=== PATIENT | male | born 1950 | race Caucasian/White ===

== ENCOUNTER 2024-07-09 12:26 | Emergency (ER) | payer MEDICARE, SELFPAY ==
[2024-07-09] VITALS (7 sets, daily range): BP systolic 113–177; BP diastolic 65–88; PULSE 54–79; RESP 14–18; TEMP 36.5; O2SAT 95–100
--- NOTE | ~2024-07-09 | CT_ITS ---
CT brain wo con Ordering provider: Cristiana Ochoa APRN History: 73 years Male with . weakness . Comparison: None. Technique: CT of the head without contrast. Radiation reduction technique utilized.The dose-length product was 681 mGy-cm. FINDINGS: BRAIN PARENCHYMA AND CSF SPACES: Mild leukoaraiosis and diffuse cortical atrophy. Mild atheromatous d isease. Old lacunar infarcts in the left basal ganglia and right caudate head. No midline shift, mass effect or hemorrhage. The brain parenchyma and CSF spaces are otherwise normal. VISUALIZED PARANASAL SINUSES: Bilateral maxillary and ethmoid sinus disease. Otherwise, Well aerated. MASTOIDS: Well aerated. BONES: The bones appear intact. SOFT TISSUES: Visualized nasopharynx is normal. Superficial soft tissues are normal. IMPRESSION: No acute intracranial findings. Reviewed, dictated and finalized at location A.
--- NOTE | ~2024-07-09 | CT_ITS ---
CTA brain carotid Ordering provider: Lexx Tong MD History: . left sided weakness, dysarthria . Comparison: July 09, 2024 Technique: CT angiogram head and neck was performed following timed intravenous injection of contrast . Thin slice axial images and reformatted coronal images were obtained. Three dimensional reformatted images of the brain were also obtained using a [employer] workstation. Radiation reduction technique ut ilized The dose-length product was 1111.68 mGy-cm. Hypodense ML Omnipaque 350 was given IV. FINDINGS: HEAD: --ANTERIOR AND MIDDLE CEREBRAL ARTERIES AND BRANCHES: Normal caliber and contour. --INTERNAL CAROTID ARTERIES: no significant stenosis. No occlusion. --BASILAR ARTERY AND BRANCHES: Normal caliber and contour. No atheromatous disease. --POSTERIOR CEREBRAL ARTERIES: Normal caliber and contour --POSTERIOR COMMUNICATING ARTERIES: The right is demonstrated and continues as posterior cerebral art quirino. The left is not visualized which is probably related to congenital absence or small size. --ANEURYSM: None visualized. --BRAIN: Enhancement seen in the brain cortex in the left frontal area which may indicate cerebritis. Herpes cerebritis Infection should be considered. Subacute infarct also can't be enhancing although no definite occlusion of vessels seen. --BONES AND SUPERFICIAL SOFT TISSUES: Please refer to report of CT head done the same day. --PARANASAL SINUSES AND MASTOIDS: Please refer to report of CT head done the same day. NECK: --RIGHT CERVICAL CAROTID SYSTEM: Mild atheromatous disease of the carotid bulb and proximal internal carotid artery without significant stenosis. Percent stenosis per NASCET criteria is No carotid diss ection. Otherwise, no significant atheromatous disease or stenosis of the cervical carotid system. --LEFT CERVICAL CAROTID SYSTEM: Mild atheromatous disease of the carotid bulb and proximal internal c arotid artery without significant stenosis. Percent stenosis per NASCET criteria is No carotid disse ction. Otherwise, no significant atheromatous disease or stenosis of the cervical carotid system. --VERTEBRAL ARTERIES: Normal caliber and contour. --VISUALIZED AORTIC ARCH AND BRANCHING VESSELS: Mild atherosclerotic changes. No significant stenosis . Ascending aorta measures 4 cm. --SOFT TISSUES: Diverticulum seen in the upper esophagus on the left side measuring 1.8 x 2.5 cm. Oth erwise, normal --CERVICAL SPINE: Age appropriate degenerative changes. IMPRESSION: 1. CTA neck. Percent stenosis per NASCET criteria is 0%. 2. No vascular occlusion or stenosis seen in the brain vessels. 3. Enhancement seen in the left frontal area suggestive of cerebritis. Subacute infarct is not exclu ded although no definite vascular occlusion seen in the area. Herpes cerebritis infection should be c onsidered. MRI may help to evaluate this area better. Dr. Tong was notified with the result of the patient at 6:27 PM on July 09, 2022. Reviewed, dictated and finalized at location A. IMPRESSION: 1. CTA neck. Percent stenosis per NASCET criteria is 0%. 2. No vascular occlusion or stenosis seen in the brain vessels. 3. Enhancement seen in the left frontal area suggestive of cerebritis. Subacut e infarct is not excluded although no definite vascular occlusion seen in the a [place]. Herpes cerebritis infection should be considered. MRI may help to evaluate this area better. Dr. Tong was notified with the result of the patient at 6:27 PM on July 09.
--- NOTE | ~2024-07-09 | XR_ITS ---
EXAMINATION: XR chest 2V DATE: 07/09/2024 14:44 INDICATION: Weakness TECHNIQUE: frontal and lateral views of the chest were obtained. COMPARISON: None FINDINGS: The lungs are clear with no focal airspace opacities, pulmonary edema, pleural effusion or pneumothor ax. The cardiomediastinal silhouette is normal. Visualized bones and soft tissues are unremarkable. IMPRESSION: 1. No acute cardiopulmonary disease. Reviewed, dictated and finalized at location A.
--- NOTE | 2024-07-09 14:08 | ED.GENADULT ---
HPI - General Adult General Chief complaint: Weakness <Cristiana Ochoa, DESTINATION SPECIALIST - Last Filed: 07/09/24 14:15> Stated complaint: Weakness/unable to walk <Cristiana Ochoa DESTINATION SPECIALIST - Last Filed: 07/09/24 14:15> Time Seen by Provider: 07/09/24 14:08 <Cristiana Huffman June, DESTINATION SPECIALIST - Last Filed: 07/09/24 14:15> Focused HPI: Aman Aparicio is a 73 y/o male with PMHx of Parkinson who typically is up at 6 in the AM and ambulatory without assistance, has been out doing yard work over the past week. Recently started on a new medication Mirtazapine for anxiety that states does make him sleepy, however this morning they went to get him up at 0815 and he was extremely more weak, unable to ambulate as normal/ states he has some baseline increased left sided weakness with his Parkinson but exacerbated today. Last known normal was 2199 05 states that speech has become more slurred over the past month and much worse today. GENERAL: well-nourished, and in no acute distress. HEAD: Normocephalic, atraumatic. CHEST: Clear to auscultation. No respiratory distress. HEART: Regular rate and rhythm. NEURO: Alert and oriented at baseline Patient screened in triage and initial orders placed. Additional care and disposition to be based upon diagnostic testing and treatment. <Cristiana Ochoa, DESTINATION SPECIALIST - Last Filed: 07/09/24 14:15> History of Present Illness HPI narrative: Agree with HPI. Patient reports he went to bed around midnight there he was trying to go to bed at 10:00 p.m.. Concern for CVA. <Lexx Tong MD - Last Filed: 07/10/24 13:23> Related Data Home medications: Home Medications Medication Instructions Recorded Confirmed Last Taken Type carbidopa 25 mg-levodopa 100 mg 2.5 tablet PO TID 07/09/24 07/09/24 07/09/24 History tablet carbidopa ER 50 mg-levodopa 200 mg 1 tablet PO DAILY@2200 07/09/24 07/09/24 07/09/24 History tablet,extended release entacapone 200 mg tablet 200 mg PO QID 07/09/24 07/09/24 07/09/24 History mirtazapine 15 mg tablet mg 07/09/24 07/08/24 History trazodone 50 mg tablet mg 07/09/24 07/08/24 History <Cristiana Ochoa, DESTINATION SPECIALIST - Last Filed: 07/09/24 14:15> Allergies/adverse reactions: Allergies Allergy/AdvReac Type Severity Reaction Status Date / Time Penicillins Allergy Severe Swelling Verified 07/09/24 12:28 of Lip/Tongue/Throat <Cristiana Ochoa, DESTINATION SPECIALIST - Last Filed: 07/09/24 14:15> Review of Systems Review of Systems: All systems reviewed & are unremarkable except as noted in HPI and below <Lexx Tong MD - Last Filed: 07/10/24 13:23> Constitutional: Constitutional: Reports no additional constitutional complaints <Lexx Tong MD - Last Filed: 07/10/24 13:23> ENT: Reports system reviewed and no additional complaints, except as documented <Lexx Tong MD - Last Filed: 07/10/24 13:23> Cardiovascular: Cardiovascular: Reports no additional cardiovascular complaints <Lexx Tong MD - Last Filed: 07/10/24 13:23> Respiratory: Respiratory: Reports no additional respiratory complaints <Lexx Tong MD - Last Filed: 07/10/24 13:23> Musculoskeletal: Musculoskeletal: Reports no additional musculoskeletal complaints <Lexx Tong MD - Last Filed: 07/10/24 13:23> Neurologic: Reports system reviewed and no additional complaints, except as documented <Lexx Tong MD - Last Filed: 07/10/24 13:23> PMFSH Past Medical History Medical History: Medical History (Updated 07/10/24 @ 00:00 by Background Dajulieta) Parkinsons disease <Cristiana Huffman June, DESTINATION SPECIALIST - Last Filed: 07/09/24 14:15> Exam Narrative: GENERAL: Ill-appearing, well-nourished, and in no acute distress. HEAD: Normocephalic, atraumatic. EYES: PERRL and EOMI. ENT: Mucous membranes moist. CHEST: Clear to auscultation. No respiratory distress. HEART: Regular rate and rhythm. Normal peripheral pulses. ABDOMEN: Soft, nontender, nondistended. EXTREMITIES: Normal range of motion. No edema. SKIN: Warm, dry, no rash. NEURO: Patient with left upper extremity drift and weakness, left lower extremity drift with some preserved strength. Difficulty with finger-nose testing left as well as [id number] testing. Slurred speech with occasional expressive aphasia. Mild left facial droop. NIH stroke scale of 9. Alert and oriented x3. <Lexx Tong MD - Last Filed: 07/10/24 13:23> Course Course Emergency Course: Awaiting call back from [facility]. Patient has had no headaches or neck stiffness. He denies fevers. He has no cold sore on his lip or in his mouth. [facility] was contacted and had been issue with patient the films over and Neurology really want to see the imaging prior to discussing the case. 2117: Spoke with neurology at [facility]. They have reviewed images. It is felt patient has symptoms more reflective of the stroke as opposed to a infectious component. They do not recommend LP or antiviral/antibiotic therapy at this time. Patient has been accepted to their facility under the care of Dr. Kana Morley. Patient and family educated. <Lexx Tong MD - Last Filed: 07/10/24 13:23> Vital Signs Vital signs: Vital Signs Temperature 97.7 F 07/09/24 12:33 Pulse Rate 74 07/09/24 12:33 Respiratory Rate 16 07/09/24 12:33 Blood Pressure 113/86 07/09/24 12:33 Pulse Oximetry 95 07/09/24 12:33 Oxygen Delivery Room Air 07/09/24 12:33 Temperature 97.7 F 07/09/24 12:33 Pulse Rate 79 07/09/24 23:13 Respiratory Rate 18 07/09/24 23:13 Blood Pressure 129/85 07/09/24 23:13 Pulse Oximetry 97 07/09/24 23:13 Oxygen Delivery Room Air 07/09/24 12:33 <Cristiana Ochoa APRN - Last Filed: 07/09/24 14:15> Vital Signs Temperature 97.7 F 07/09/24 12:33 Pulse Rate 74 07/09/24 12:33 Respiratory Rate 16 07/09/24 12:33 Blood Pressure 113/86 07/09/24 12:33 Pulse Oximetry 95 07/09/24 12:33 Oxygen Delivery Room Air 07/09/24 12:33 Temperature 97.7 F 07/09/24 12:33 Pulse Rate 79 07/09/24 23:13 Respiratory Rate 18 07/09/24 23:13 Blood Pressure 129/85 07/09/24 23:13 Pulse Oximetry 97 07/09/24 23:13 Oxygen Delivery Room Air 07/09/24 12:33 <Lexx Tong MD - Last Filed: 07/10/24 13:23> Medical Decision Making Vital Signs Vital Signs: Vital Signs Temperature 97.7 F 07/09/24 12:33 Pulse Rate 74 07/09/24 12:33 Respiratory Rate 16 07/09/24 12:33 Blood Pressure 113/86 07/09/24 12:33 Pulse Oximetry 95 07/09/24 12:33 Oxygen Delivery Room Air 07/09/24 12:33 Temperature 97.7 F 07/09/24 12:33 Pulse Rate 79 07/09/24 23:13 Respiratory Rate 18 07/09/24 23:13 Blood Pressure 129/85 07/09/24 23:13 Pulse Oximetry 97 07/09/24 23:13 Oxygen Delivery Room Air 07/09/24 12:33 <Cristiana Ochoa, DESTINATION SPECIALIST - Last Filed: 07/09/24 14:15> Vital Signs Temperature 97.7 F 07/09/24 12:33 Pulse Rate 74 07/09/24 12:33 Respiratory Rate 16 07/09/24 12:33 Blood Pressure 113/86 07/09/24 12:33 Pulse Oximetry 95 07/09/24 12:33 Oxygen Delivery Room Air 07/09/24 12:33 Temperature 97.7 F 07/09/24 12:33 Pulse Rate 79 07/09/24 23:13 Respiratory Rate 18 07/09/24 23:13 Blood Pressure 129/85 07/09/24 23:13 Pulse Oximetry 97 07/09/24 23:13 Oxygen Delivery Room Air 07/09/24 12:33 <Lexx Tong MD - Last Filed: 07/10/24 13:23> Lab Data Result diagrams: 07/09/24 15:34 07/09/24 15:34 <Cristiana Ochoa DESTINATION SPECIALIST - Last Filed: 07/09/24 14:15> Labs: Lab Results 07/09/24 07/09/24 07/09/24 Range/Units 15:34 16:24 18:46 WBC 6.6 (4.5-10.0) K/mm3 RBC 4.43 L (4.6-6.20) M/mm3 Hgb 12.0 L (14.0-18.0) g/dL Hct 38.2 L (42.0-52.0) % MCV 86.2 (80-100) fl MCH 27.1 (26-34) pg MCHC 31.4 L (32-36) g/dl RDW 14.8 H (11.5-14.5) % Plt Count 202 (150-375) k/mm3 MPV 9.3 (7.4-10.4) fl Immature Gran % (Auto) 0.5 (0-0.5) % Neut % (Auto) 77.5 H (45.5-73.1) % Lymph % (Auto) 11.2 L (18.3-44.2) % [place] % (Auto) 8.8 H (2.6-8.5) % Eos % (Auto) 1.5 (0-4.4) % Baso % (Auto) 0.5 (0.2-1.2) % Lymph # (Auto) 0.74 L (0.9-3.2) K/mm3 [place] # (Auto) 0.6 (0.1-0.6) K/mm3 Eos # (Auto) 0.1 (0-0.3) K/mm3 Baso # (Auto) 0.0 (0.0-0.1) K/mm3 Abs Immat Gran (auto) 0.03 (0.00-0.031) K/mm3 Absolute Neuts (auto) 5.1 (1.3-6.7) K/mm3 Absolute Nucleated RBC 0.000 (0.0-0.012) K/mm3 Nucleated RBC % 0.0 (0.0-0.2) % Sodium 137 (137-145) mmol/L Potassium 4.1 (3.4-5.0) mmol/L Chloride 107 (98-107) mmol/L Carbon Dioxide 21 L (22-30) mmol/L Anion Gap 9 (4-12) mmol/L BUN 21 H (9-20) mg/dL Creatinine 0.76 (0.7-1.3) mg/dL Estim Creat Clear Calc Not Reportable Estimated GFR > 60 (59 - ) Glucose 98 (65-110) mg/dL Calcium 9.2 (8.4-10.2) mg/dL Total Bilirubin 0.9 (0.2-1.3) mg/dL AST 21 (17-59) U/L ALT 8 (6-50) U/L Alkaline Phosphatase 57 (38-126) U/L Troponin I 0.021 0.019 (0.000-0.034) ng/mL Total Protein 7.0 (6.3-8.2) g/dL Albumin 4.0 (3.5-5.1) g/dL Urine Color Dark yellow (Yellow) Urine Appearance Clear (Clear) Urine pH 5.5 (5.0-9.0) Ur Specific [place] 1.026 (1.001-1.035) Urine Protein Negative (Negative) mg/dL Urine Glucose (UA) Negative (Negative) mg/dL Urine Ketones 1+ H (Negative) mg/dL Ur Blood (Man) Negative (Negative) Urine Nitrate Negative (Negative) Urine Bilirubin 1+ H (Negative) Urine Urobilinogen 1.0 (<2.0) mg/dL Leukocyte Esterase Rfl Negative (Negative) GEO/UL <Cristiana Ochoa, DESTINATION SPECIALIST - Last Filed: 07/09/24 14:15> Lab Results 07/09/24 07/09/24 07/09/24 Range/Units 15:34 16:24 18:46 WBC 6.6 (4.5-10.0) K/mm3 RBC 4.43 L (4.6-6.20) M/mm3 Hgb 12.0 L (14.0-18.0) g/dL Hct 38.2 L (42.0-52.0) % MCV 86.2 (80-100) fl MCH 27.1 (26-34) pg MCHC 31.4 L (32-36) g/dl RDW 14.8 H (11.5-14.5) % Plt Count 202 (150-375) k/mm3 MPV 9.3 (7.4-10.4) fl Immature Gran % (Auto) 0.5 (0-0.5) % Neut % (Auto) 77.5 H (45.5-73.1) % Lymph % (Auto) 11.2 L (18.3-44.2) % [place] % (Auto) 8.8 H (2.6-8.5) % Eos % (Auto) 1.5 (0-4.4) % Baso % (Auto) 0.5 (0.2-1.2) % Lymph # (Auto) 0.74 L (0.9-3.2) K/mm3 [place] # (Auto) 0.6 (0.1-0.6) K/mm3 Eos # (Auto) 0.1 (0-0.3) K/mm3 Baso # (Auto) 0.0 (0.0-0.1) K/mm3 Abs Immat Gran (auto) 0.03 (0.00-0.031) K/mm3 Absolute Neuts (auto) 5.1 (1.3-6.7) K/mm3 Absolute Nucleated RBC 0.000 (0.0-0.012) K/mm3 Nucleated RBC % 0.0 (0.0-0.2) % Sodium 137 (137-145) mmol/L Potassium 4.1 (3.4-5.0) mmol/L Chloride 107 (98-107) mmol/L Carbon Dioxide 21 L (22-30) mmol/L Anion Gap 9 (4-12) mmol/L BUN 21 H (9-20) mg/dL Creatinine 0.76 (0.7-1.3) mg/dL Estim Creat Clear Calc Not Reportable Estimated GFR > 60 (59 - ) Glucose 98 (65-110) mg/dL Calcium 9.2 (8.4-10.2) mg/dL Total Bilirubin 0.9 (0.2-1.3) mg/dL AST 21 (17-59) U/L ALT 8 (6-50) U/L Alkaline Phosphatase 57 (38-126) U/L Troponin I 0.021 0.019 (0.000-0.034) ng/mL Total Protein 7.0 (6.3-8.2) g/dL Albumin 4.0 (3.5-5.1) g/dL Urine Color Dark yellow (Yellow) Urine Appearance Clear (Clear) Urine pH 5.5 (5.0-9.0) Ur Specific [place] 1.026 (1.001-1.035) Urine Protein Negative (Negative) mg/dL Urine Glucose (UA) Negative (Negative) mg/dL Urine Ketones 1+ H (Negative) mg/dL Ur Blood (Man) Negative (Negative) Urine Nitrate Negative (Negative) Urine Bilirubin 1+ H (Negative) Urine Urobilinogen 1.0 (<2.0) mg/dL Leukocyte Esterase Rfl Negative (Negative) EGO/UL <Lexx Tong MD - Last Filed: 07/10/24 13:23> Discharge Plan Discharge Clinical Impression: Stroke <Cristiana Huffman June, DESTINATION SPECIALIST - Last Filed: 07/09/24 14:15> Patient Disposition: Acute Care Hospital <Cristiana Huffman June DESTINATION SPECIALIST - Last Filed: 07/09/24 14:15> Condition: Stable <Cristiana Huffman June, - Last Filed: 07/09/24 14:15> Patient Language: Togolese <Cristiana Huffman June,N - Last Filed: 07/09/24 14:15> Prescriptions: No Action carbidopa-levodopa 25-100 mg tablet 2.5 tablet PO TID Rx Instructions: 0600 1000 1800 *3 tabs @ 1400* carbidopa-levodopa 50-200 mg tablet extended release 1 tablet PO DAILY@2200 entacapone 200 mg tablet 200 mg PO QID mirtazapine 15 mg tablet trazodone 50 mg tablet <Cristiana CelyBernabe June, - Last Filed: 07/09/24 14:15> Follow-up/Referrals: Harms,Rocco Ying M.D. [Primary Care Provider] - <Cristiana Ochoa, DESTINATION SPECIALIST - Last Filed: 07/09/24 14:15> Quality Stroke Date of last known normal: 07/09/24 <Lexx Tong MD - Last Filed: 07/10/24 13:23> Time of last known normal: 00:00 <Lexx Tong MD - Last Filed: 07/10/24 13:23> Stroke Scale Stroke Scale 1: Stroke scale date:: 07/09/24 <Lexx Tong MD - Last Filed: 07/10/24 13:23> Stroke scale time:: 15:58 <Lexx Tong MD - Last Filed: 07/10/24 13:23> 1a Level of consciousness: alert-0 <Lexx Tong MD - Last Filed: 07/10/24 13:23> 1b Level of consciousness questions: answers both correctly-0 <Lexx Tong MD - Last Filed: 07/10/24 13:23> 1c Level of consciousness commands: obeys both correctly-0 <Lexx Tong MD - Last Filed: 07/10/24 13:23> 2 Best gaze: normal-0 <Lexx Tong MD - Last Filed: 07/10/24 13:23> 3 Visual: no visual loss-0 <Lexx Tong MD - Last Filed: 07/10/24 13:23> 4 Facial palsy: partial paralysis-2 <Lexx Tong MD - Last Filed: 07/10/24 13:23> 5a Motor: left arm: some effort/gravity-2 <Lexx Tong MD - Last Filed: 07/10/24 13:23> 5b Motor: right arm: no drift-0 <Lexx Tong MD - Last Filed: 07/10/24 13:23> 6a Motor: left leg: drift-1 <Lexx Tong MD - Last Filed: 07/10/24 13:23> 6b Motor: right leg: no drift-0 <Lexx Tong MD - Last Filed: 07/10/24 13:23> 7 Limb ataxia: present in two limbs-2 <Lexx Tong MD - Last Filed: 07/10/24 13:23> 8 Sensory: normal-0 <Lexx Tong MD - Last Filed: 07/10/24 13:23> 9 Best language: some loss of fluency-1 <Lexx Tong MD - Last Filed: 07/10/24 13:23> 10 Dysarthria: slurs some words-1 <Lexx Tong MD - Last Filed: 07/10/24 13:23> 11 Extinction and inattention: no abnormality-0 <Lexx Tong MD - Last Filed: 07/10/24 13:23> Level:: 9 <Lexx Tong MD - Last Filed: 07/10/24 13:23>
--- NOTE | 2024-07-09 14:15 | ECG_ITS ---
Test Date: 2024-07-09 15:33:02 Measurements Intervals [place] Rate: 59 P: 116 [place]: 178 QRS: 232 QRSD: 160 T: 176 QT: 452 QTc: 451 Interpretive Statements SINUS BRADYCARDIA WITH OCCASIONAL SUPRAVENTRICULAR PREMATURE COMPLEXES RIGHT AXIS DEVIATION [QRS AXIS > 100] RIGHT BUNDLE BRANCH BLOCK [120+ ms QRS DURATION, UPRIGHT V1, 40+ ms S IN I/aVL/V4/V5/V6] POSSIBLE SEPTAL MYOCARDIAL INFARCTION , OF INDETERMINATE AGE [30 ms Q WAVE IN V1/V2] MODERATE T-WAVE ABNORMALITY, CONSIDER INFERIOR ISCHEMIA [-0.1+ mV T-WAVE IN II/aVF] ABNORMAL ECG No previous ECG available for comparison Electronically Signed On 07-10-2024 08:01:28 CDT by Alfonso Figueredo M.D.
--- NOTE | 2024-07-09 15:39 | PC.NURSE ---
Pt provided with urinal to provide urine sample.
[2024-07-09 15:43] LABS: Basophils Percent Auto 0.5 % (0.2-1.2); Eosinophils Absolute Auto 0.1 K/mm3 (0-0.3); Eosinophils Percent Auto 1.5 % (0-4.4); Hematocrit 38.2 % (42.0-52.0); Immature Granulocyte Absolute 0.03 K/mm3 (0.00-0.031); Immature Granulocyte Percent A 0.5 % (0-0.5); Lymphocytes Absolute Auto 0.74 K/mm3 (0.9-3.2); Lymphocytes Percent Auto 11.2 % (18.3-44.2); Mean Corpuscular HGB Conc 31.4 g/dl (32-36); Mean Corpuscular Hemoglobin 27.1 pg (26-34); Mean Corpuscular Volume 86.2 fl (80-100); Mean Platelet Volume 9.3 fl (7.4-10.4); Monocytes Absolute Auto 0.6 K/mm3 (0.1-0.6); Monocytes Percent Auto 8.8 % (2.6-8.5); Neutrophils Absolute Auto 5.1 K/mm3 (1.3-6.7); Neutrophils Percent Auto 77.5 % (45.5-73.1); Platelet Count Result 202 k/mm3 (150-375); Red Blood Count 4.43 M/mm3 (4.6-6.20); Red Cell Distribution Width 14.8 % (11.5-14.5); White Blood Count 6.6 K/mm3 (4.5-10.0)
[2024-07-09 15:58] LABS: Alanine Aminotransferase 8 U/L (6-50); Alkaline Phosphatase 57 U/L (38-126); Anion Gap 9 mmol/L (4-12); Aspartate Amino Transferase 21 U/L (17-59); Bilirubin,Total 0.9 mg/dL (0.2-1.3); Blood Urea Nitrogen 21 mg/dL (9-20); Calcium 9.2 mg/dL (8.4-10.2); Carbon Dioxide 21 mmol/L (22-30); Chloride 107 mmol/L (98-107); Estimated Glomerular Filt Rate > 60; Glucose 98 mg/dL (65-110); Potassium 4.1 mmol/L (3.4-5.0); Sodium 137 mmol/L (137-145)
[2024-07-09 16:11] LABS: Troponin I 0.021 ng/mL (0.000-0.034)
[2024-07-09 16:31] LABS: Add Urine Microscopic? YES; Appearance Urine Clear (Clear); Bilirubin Urine 1+ (Negative); Blood Urine Negative (Negative); Color Urine Dark Yellow (Yellow); Glucose Urine UA Negative (Negative); Ketones Urine 1+ mg/dL (Negative); Leukocyte Esterase Ur Negative LEU/UL (Negative); Nitrate Urine Negative (Negative); Protein Urine Negative (Negative); Specific Grav Ur 1.026 (1.001-1.035); pH Urine 5.5 (5.0-9.0)
--- NOTE | 2024-07-09 17:04 | PC.NURSE ---
Pt attempting to give urine sample with urinal in bed with rails up and call light in reach. This RN was next door with another pt when pt was heard after a fall to the ground. Pt reports he was trying to stand to give urine sample, however did not call for help. Pt is &ox4. Pt hit knees on floor, denies hitting head. Pt assisted back to bed in NAD. Bed alarm applied and pt educated on fall precautions. information security systems instructor made aware.
--- NOTE | 2024-07-09 18:40 | ECG_ITS ---
Test Date: 2024-07-09 18:47:43 Measurements Intervals [place] Rate: 49 P: 64 MT: 205 QRS: -40 QRSD: 97 T: -13 QT: 475 QTc: 430 Interpretive Statements SINUS BRADYCARDIA LEFT AXIS DEVIATION [QRS AXIS < -30] POSSIBLE RIGHT VENTRICULAR CONDUCTION DELAY [RSR (QR) IN V1/V2] JUNCTIONAL ST DEPRESSION, CONSIDER NORMAL VARIANT [0.1+ mV JUNCTIONAL DEPRESSION] INFERIOR T-WAVE ABNORMALITY, CONSIDER ISCHEMIA ABNORMAL ECG Electronically Signed On 07-10-2024 08:04:14 CDT by Alfonso Figueredo M.D.
[2024-07-09 19:20] LABS: Troponin I 0.019 ng/mL (0.000-0.034)
== END 2024-07-09 23:47 | disposition short-term general hospital (02) ==
PROVIDERS: Nurse Practitioner Family; Emergency Provider Emergency Medicine; PCP Family Medicine
DX: I63.9 Cerebral infarction, unspecified (principal); G20.A1 Parkinson's disease without dyskinesia, without mention of fluctuations; Z79.899 Other long term (current) drug therapy
CPT/HCPCS: 36415; 70450; 70496; 70498; 71046; 80053; 81001; 84484; 85025; 93005; 99285; Q9967

== ENCOUNTER 2024-12-20 16:51 | Emergency (ER) | payer MEDICARE, SELFPAY ==
--- NOTE | ~2024-12-20 | XR_ITS ---
EXAMINATION: XR chest 1V portable DATE: 12/20/2024 18:08 INDICATION: Cough. Lethargy. TECHNIQUE: frontal view of the chest was obtained. COMPARISON: Chest radiograph dated 07/09/2024 FINDINGS: Moderate biapical pleural-parenchymal scarring. Increased interstitial pattern and bronchial wall thickening bilateral mid to lower lung zones which could be due to bronchitis/pneumonia or mild pulmonary edema. No pleural effusion or pneumothorax. The cardiomediastinal silhouette is normal. IMPRESSION: 1. Interstitial opacities and bronchial wall thickening in the bilateral mid and lower lung zones which could represent bronchitis/pneumonia or mild pulmonary edema. Reviewed, dictated and finalized at location A. IMPRESSION: 1. Interstitial opacities and bronchial wall thickening in the bilateral mid an d lower lung zones which could represent bronchitis/pneumonia or mild pulmonary edema.
[2024-12-20 16:51] VITALS: BP 121/76; PULSE 104; RESP 18; TEMP 37.9; O2SAT 96
--- NOTE | 2024-12-20 17:00 | ECG_ITS ---
Test Date: 2024-12-20 17:37:39 Measurements Intervals [place] Rate: 89 P: 41 LA: 185 QRS: -51 QRSD: 80 T: 0 QT: 180 QTc: 220 Interpretive Statements SINUS RHYTHM INCOMPLETE RIGHT BUNDLE BRANCH BLOCK LOW QRS VOLTAGE IN PRECORDIAL LEADS LEFT ANTERIOR FASCICULAR BLOCK NONSPECIFIC ST & T-WAVE ABNORMALITY- INFERIOR LEADS BASELINE ARTIFACT- I, III, AVR, AVL, AVF, V1-V2, V5-V6 ABNORMAL ECG Compared to ECG 07/09/2024 18:47:43 HEART RATE HAS INCREASED Electronically Signed On 12-20-2024 19:53:14 CDT by Markus Rodriguez D.O.
[2024-12-20 17:27] LABS: Hematocrit 32.7 % (42.0-52.0); Hemoglobin 11.0 g/dL (14.0-18.0); Mean Corpuscular HGB Conc 33.6 g/dl (32-36); Mean Corpuscular Hemoglobin 27.4 pg (26-34); Mean Corpuscular Volume 81.3 fl (80-100); Platelet Count Result 208 k/mm3 (150-375); Red Blood Count 4.02 M/mm3 (4.6-6.20); White Blood Count 14.7 K/mm3 (4.5-10.0)
[2024-12-20 17:38] LABS: INR 1.2; Prothrombin Time 14.6 Seconds (11.1-14.7)
[2024-12-20 17:38] LABS: Add Urine Microscopic? YES; Appearance Urine Clear (Clear); Glucose Urine UA Negative (Negative); Leukocyte Esterase Ur Negative LEU/UL (Negative); Nitrate Urine Negative (Negative); Specific Grav Ur 1.018 (1.001-1.035)
[2024-12-20 17:39] LABS: Alanine Aminotransferase 7 U/L (6-50); Albumin Level 3.9 g/dL (3.5-5.1); Alkaline Phosphatase 62 U/L (38-126); Anion Gap 7 mmol/L (4-12); Aspartate Amino Transferase 32 U/L (17-59); Bilirubin,Total 0.5 mg/dL (0.2-1.3); Blood Urea Nitrogen 31 mg/dL (9-20); Calcium 9.2 mg/dL (8.4-10.2); Carbon Dioxide 21 mmol/L (22-30); Chloride 106 mmol/L (98-107); Estimated CRCL calculation 81 ml/min; Estimated Glomerular Filt Rate > 60; Glucose 93 mg/dL (65-110); Partial Thromboplastin Time 34.8 Seconds (22.3-36.8); Potassium 4.3 mmol/L (3.4-5.0); Sodium 134 mmol/L (137-145); Total Protein 6.5 g/dL (6.3-8.2)
--- OUTSIDE RECORDS SUMMARY | 2024-12-20 17:46 | XMS_ITS | Clinical Summary ---
Author Organization [facility] Address [address] [place] [address] Care Team Providers Care Attending Anesthesiologist Name Role Phone Rocco Sierra MD Primary Care Provider [phone] Social History Tobacco Use Types Packs/Day Years Used Date Smoking Tobacco: Never Assessed Sex and Gender Information Value Date Recorded Sex Assigned at Not on file Legal Sex Male 2:21 PM CDT Gender Identity Not on file Sexual Orientation Not on file Plan of Treatment Health Maintenance Due Date Last Done Comments Colorectal Cancer Screening Colonoscopy (10 Years) 1950 Hepatitis C 11/16/1967 DTaP, Tdap and Td Vaccines ( 1 - Tdap) 1968 Pneumococcal Vaccine: 50+ Ye ars (1 of 1 - PCV) 11/16/1999 Zoster Vaccines (1 of 2) 11/16/1999 Annual Medicare Wellness Visit 2014 COVID-19 Vaccine ( - 2024-2 6 season) 2024 RSV Immunization or 60+ Years (1 - 1-dose 75+ series) 2024 Influenza Adult (#1) 2024 Hepatitis A Vaccines Aged Out No long er eligible based on patient's age to complete this topic Meningococcal B Vaccine Aged Out No l onger eligible based on patient's age to complete this topic Meningococcal Vaccine Aged Out No juan enrike eligible based on patient's age to complete this topic RSV Immunizations Under 20 Months Aged Out No longer eligible based on patient's age to complete this topic Insurance MED REPLACE [facility] MEDICARE Care Teams Attending Anesthesiologist Relationship Specialty Start Date End [place] [address] PCP - General INTERNAL MEDICINE 07/22/24
--- OUTSIDE RECORDS SUMMARY | 2024-12-20 17:46 | XMS_ITS | Encounter Summary ---
Author Organization [facility] Address [address] [place] [address] Phone Care Team Providers Care Last Pattern Grader Name Role Phone Chente Weller MD Primary Care Provider [phone] Reason for Visit * Reason Onset Date Comments Advice Only 10/26/2024 Diarrhea 10/26/2024 Encounter Details Date Type Department Care Team (Late st Contact Info) Description 10/26/2024 Nurse Triage [facility] Call Center [address] [place] [address] Chente Weller MD [address] [place] [address] Advice Only; Diarrhea Social History Tobacco Use Types Packs/Day Years Used Date Smoking Tobacco: Never Smokeless Tobacco: Never Alcohol Use Standard Drinks/Week Comments Not Currently 0 (1 standard drink = 0.6 oz pur e alcohol) PHQ-2 Answer Date Recorded Total Score - Questions 1-9 0 10/2024 Social Connection and Isolation Panel Answer Date Recorded In a typical week, how many times do you talk on the phone with family, friends, or neighbors? More than three times a week 09/01/2024 How often do you get togethe r with friends or relatives? Patient declined 09/01/2024 How often do you attend chur ch or restoration services? Patient declined 09/01/2024 Do you belong to any clubs o r organizations such as scientology groups, unions, fraternal or athletic groups, or school groups? No 09/01/2024 How often do you attend meet ings of the clubs or organizations you belong to? Never 09/01/2024 Are you , , di vorced, , never , or living with a partner? 09/01/2024 AUDIT-C Answer Date Recorded Q1: How often do you have a drink containing alc ohol? Monthly or less 09/01/2024 Q2: How many drinks containi ng alcohol do you have on a typical day when you are drinking? 1 or 2 09/01/2024 Q3: How often do you have si x or more drinks on one occasion? Never 09/01/2024 Overall Financial Resource Strain (CARDIA) Answe r Date Recorded How hard is it for you to pa y for the very basics like food, housing, medical care, and heating? Not hard at all 09/01/2024 [facility] Reading of Occupat ional Health - Occupational Stress Questionnaire Answer Date Recorded Do you feel stress - tense, restless, nervous, or anxious, or unable to sleep at night because your mind is troubled all the time - these days? Only a little 09/01/2024 Exercise Vital Sign Answer Date Recorde d On average, how many days pe r week do you engage in moderate to strenuous exercise (like a brisk walk)? 7 days 09/01/2024 On average, how many minutes do you engage in exercise at this level? 10 min 09/01/2024 Hunger Vital Sign Answer Date Recorded Within the past 12 months, y ou worried that your food would run out before you got the money to buy more. Never true 09/02/19 25 Within the past 12 months, t he food you bought just didn't last and you didn't have money to get more. Never true 09/01/2024 PRAPARE - Transportation Answer Date Re corded In the past 12 months, has l ack of transportation kept you from medical appointments or from getting medications? No 10/2024 In the past 12 months, has l ack of transportation kept you from meetings, work, or from getting things needed for daily living? No 09/01/2024 Housing Stability Vital Sign Answer Jeff e Recorded In the last 12 months, was t here a time when you were not able to pay the mortgage or rent on time? No 09/01/2024 In the past 12 months, how m any times have you moved where you were living? 0 09/01/2024 At any time in the past 12 m [facility], were you homeless or living in a fci (including now)? No 09/01/2024 [facility] Utilities Answer Date Recorded In the past 12 months has e electric, gas, oil, or water company threatened to shut off services in your home? No 09/01/2024 Sexually Active Control Partners Comments Not Currently Sex and Gender Information Value Date Recorded Sex Assigned at Not on file Legal Sex Male 8:09 PM CDT Gender Identity Not on file Sexual Orientation Not on file documented as of this encounter Miscellaneous Notes * Telephone Encounter - Yasmin Tay RN - 10/26/2024 11:01 AM CDT SITUATION: 73 y.o. with diarrhea BACKGROUND: Morena Romero, contacting PCP office. Person contacting is listed on current personal safety representative designee form on file. stated that patient has Parkinson's. reported patient had constipation last week, and wasgiven Miralax. reported patient has been having diarrhea since 10/22/24 Per chart review, patient was last seen in office on 09/01/24 ASSESSMENT: Symptom Description / Location: reported patient is having increased bowel incontinence Watery stool 4-5 stools in past 24 hours Normal stool color Reported normally does not drink much liquids Reported started Doxycycline on 10/20/24 Has taken previous with no problems Denies chest pain -shortness of breath/difficulty breathing -abdominal pain -blood/mucous in stool -dehydration, vomiting Treatment / Response: Imodium twice, Pepto-bismol with no relief. Caller denies pain. Denies fever. RECOMMENDATION: See in Office Today. Caller understands recommendation, but refuses disposition of See in Office or Video Visit Today, See More Appropriate Guideline and is requesting provider recommendations regarding a medication thatcan stop diarrhea. is wanting provider's recommendations regarding medications that can stop diarrhea? Please advise with provider's recommendations, would like a phone call back with provider's recommendations. Verified medication, pharmacy, and allergies Encounter routed to provider high priority to notify. Discussed utilizing [employer] to: discuss if they would prefer a [employer] message or phone call response. Response is preferred via Phone Call. - Reason for Disposition: Diarrhea begins while taking an antibiotic by mouth (oral antibiotic) MODERATE diarrhea (e.g., 4-6 times / day more than normal) . Protocols Used: Diarrhea on Fcllxyxchoo-A-DK Mcnhmvnq-D-UX See care advice and disposition for Guideline. First positive answer recorded, all responses to prior questions were negative. If symptoms increase, change or if new symptoms develop, call your health care provider or call back. Recommendations were based on caller information and is not a diagnosis. Verified and reviewed all triage information with caller. * Telephone Encounter - Claire Guidry - 10/26/2024 10:46 AM CDT Symptom: Diarrhea Outcome: Schedule an appointment at earliest convenience. Reason: Caller denied all higher acuity questions The caller accepted this outcome. Caller Denied: * Blood in the diarrhea * Vomiting * No urine (pee) in past 8 hours documented in this encounter Plan of Treatment Upcoming Encounters Date Type Department Care Team (Late st Contact Info) Description 05/26/2025 11:00 AM CDT Office Visit [facility] - [facility] - [facility] [address] [place] [phone] Chente Weller MD [address] [place], [place] [id number] documented as of this encounter Visit Diagnoses Not on filedocumented in this encounter Additional Health Concerns Assessment Noted Time PHQ-9 Depression Total Score: 0 09/02/19 25 8:26 AM CDT documented as of this encounter Care Teams Last Pattern Grader Relationship Specialty Start Date End Date Chente Weller MD PCP - General Internal Medicine 09/01/24 documented as of this encounter
--- OUTSIDE RECORDS SUMMARY | 2024-12-20 17:46 | XMS_ITS | Clinical Summary ---
Author Organization [facility] Address [address] [facility], [address] [address] Phone Care Team Providers Care Fan Runner Name Role Phone Chente Weller MD Primary Care Provider [phone] Allergies Active Allergy Reactions Criticality Noted Date Comments Atorvastatin Other (see Comments) 10/01/2024 Bitter taste Penicillins Hives 09/01/2024 Medications carbidopa-levodopa CR (SINEMET CR) 50-200 MG Tablet Controlled Release Take 1 Tablet by mouth nightly. 5 06/03/19 26 Active carbidopa-levodopa (SINEMET) 25-100 MG Tablet Take 1 Tablet by mouth 3 times daily. 5 Active entacapone (COMTAN) 200 MG Tablet Take 200 mg by mouth 4 times daily. 5 Active mirtazapine (REMERON) 15 MG Tablet Take 15 mg by mouth nightly. 5 04/20/19 26 Active senna (SENOKOT) 8.6 MG Tablet Take 1 Tablet by mouth daily. Active traZODone (DESYREL) 50 MG Tablet Take 50 mg by mouth nightly. 5 Active aspirin EC (ECOTRIN) 325 MG Tablet Delayed Response Take 325 mg by mouth daily. Active ezetimibe (ZETIA) 10 MG Tablet Take 1 Tablet by mouth daily. 90 Tablet 1 5 Active carbidopa (LODOSYN) 25 MG Tablet Take 25 mg by mouth 3 times daily. Active rosuvastatin (CRESTOR) 5 MG TabletIndications: Other hyperlipidemia Take 1 Tablet by mouth nightly. 90 Tablet 1 5 Active ezetimibe (ZETIA) 10 MG Tablet Take 1 Tablet by mouth daily. 30 Tablet 3 5 11/26/19 25 Discontinu ed(Reorder ) carbidopa (LODOSYN) 25 MG Tablet Take 25 mg by mouth 3 times daily. 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 09/01/2024 Other hyperlipidemia 09/01/2024 Hemiparesis affecting left s valeriano as late effect of cerebrovascular accident (CVA) 09/01/2024 Other insomnia 09/01/2024 Encounters Date Type Department Care Team Description 12/15/2024 Telephone [facility] [address] [place] [address] Chente Weller MD 11/25/2024 8:40 AM CDT Office Visit [facility] [place] [facility] [address] [place] [address] Chente Weller MD Hemiparesis affecting left side as late effect of cerebrovascular accident (CVA) (Primary Dx); Encounter for immunization; Other hyperlipidemia; Parkinson's disease with dyskinesia without fluctuating manifestations Discharge Disposition: Discharged to home or Selfcare 11/25/2024 Travel 10/26/2024 Nurse Triage [facility] [address] [phone] Chente Weller MD Advice Only; Diarrhea 10/01/2024 Refill [facility] [address] [place] [address] Chente Weller MD 09/24/2024 Nurse Triage [facility] Call Center [address] [place] [phone] Chente Weller MD Taste Concerns; Follow-up 09/24/2024 Telephone [facility] Call Center [address] [place] [phone] Chente Weller MD Erroneous Encounter - Disregard from Last 3 Months Immunizations Immunization Administration Dates Next Due Influenza, Trivalent, Adjuvanted, PF 11/25/2024 Family History Medical History Relation Name Comments No Known Problems Brother No Known Problems Sister Relation Name Status Comments Brother Alive Father Mother Sister Alive Social History Tobacco Use Types Packs/Day Years Used Date Smoking Tobacco: Never Passive Smoke Exposure: Never Smokeless Tobacco: Never Tobacco Cessation:Counseling Given: No Alcohol Use Standard Drinks/Week Comments Not Currently 0 (1 standard drink = 0.6 oz pur e alcohol) PHQ-2 Answer Date Recorded Total Score - Questions 1-9 0 03/2024 Social Connection and Isolation Panel Answer Date Recorded In a typical week, how many times do you talk on the phone with family, friends, or neighbors? More than three times a week 09/01/2024 How often do you get togethe r with friends or relatives? Patient declined 09/01/2024 How often do you attend [facility] or mormon services? Patient declined 09/01/2024 Do you belong to any clubs o r organizations such as gnosticism groups, unions, fraternal or athletic groups, or [...] and heating? Not hard at all 09/01/2024 [facility] [place] of Occupat ional Health - Occupational Stress [...] any time in the past 12 m [facility], were you homeless or living in a snf (including now)? No 09/01/2024 [facility] Utilities Answer Date Recorded In the past 12 months has th e electric, gas, oil, or water company threatened to shut off services in your home? No 09/01/2024 Sexually Active Control Partners Comments Not Currently Sex and Gender Information Value Date Recorded Sex Assigned at Not on file Legal Sex Male 8:09 PM CDT Gender Identity Not on file Sexual Orientation Not on file Last Filed Vital Signs Vital Sign Reading Time Taken Comments Blood Pressure 100/64 11/25/2024 8:37 AM CDT Pulse 64 11/25/2024 8:37 AM CDT Temperature 36.7 C (98.1 F) 11/25/2024 8:37 AM CDT Respiratory Rate - - Oxygen Saturation 100% 11/25/2024 8:37 AM CDT Inhaled Oxygen Concentration - - Weight 72.6 kg (160 lb) 11/25/2024 8:37 AM CDT Height 190.5 cm (6' 3) 11/25/2024 8:37 AM CDT Body Mass Index 20 11/25/2024 8:37 AM CDT Plan of Treatment Upcoming Encounters Date Type Department Care Team (Late st Contact Info) Description 05/26/2025 11:00 AM CDT Office Visit [facility] - Primary Care - [facility] [address] [place] [place] [phone] Chente Weller MD [address] [place] [address] Health Maintenance Due Date Last Done Comments Hepatitis C Virus (HCV) Screening 1950 TdaP Immunization 1950 Cologuard 1994 Colonoscopy 1994 Colorectal Cancer Screening 1994 Immunochemical Fecal Occult Blood 1994 Welcome to Medicare (IPPE) [id number] 02/25/2024 SARS-COV-2 Immunization ( season) 2024 02/04/2024, 06/28/2022, 11/05/2021, Additional history exists Pneumococcal Immunization (50+ years) Completed 04/01/2024, 01/30/2021 Respiratory Syncytial Virus (RSV) Immunization (Adult) Completed 04/01/2024 Zoster Immunization Completed 04/01/2024, Influenza Immunization Completed , 02/04/2024, 11/05/2021, Additional history exists Hepatitis B Immunization Aged Out No longer eligible based on patient's age to complete this topic Human Papillomavirus (HPV) Immunization Aged Out No longer eligible based on patient's age to complete this topic Meningococcal Immunization (ACWY) Aged Out No longer eligible based on patient's age to complete this topic Rotavirus Immunization Aged Out No lo nger eligible based on patient's age to complete this topic Procedures Procedure Name Priority Date/Time Associated Diagnosis Comments LIPID PANEL Routine 12/01/2024 12:00 AM CDT Other hyperlipidemia CMP (COMPREHENSIVE METABOLIC PANEL) Routine 12/01/2024 12:00 AM CDT Other hyperlipidemia from Last 3 Months Results * LIPID PANEL (12/01/2024 12:00 AM CDT) CHOLESTEROL 149 SCAN HDL CHOLESTEROL 40 SCAN LDL 91 SCAN Blood Chente Weller MD CHEMISTRY ORDERABLES Final Result SCAN * CMP (COMPREHENSIVE METABOLIC PANEL) (12/01/2024 12:00 AM CDT) Blood us Chente Weller MD CHEMISTRY ORDERABLES Final Result SCAN from Last 3 Months Insurance MEDICARE C [facility] Care Teams Fan Runner Relationship Specialty Start Date End Date Chente Weller MD PCP - General Internal Medicine 09/01/24
[2024-12-20 17:51] LABS: Anisocytosis 2+; Band Neutrophils Percent 8 % (0-6); Basophils Absolute Manual 0.14 K/mm3 (0.0-0.1); Basophils Percent Manual 1 % (0-1); Lymphocytes Absolute Manual 1.61 K/mm3 (1.1-4.5); Lymphocytes Percent Manual 11.0 % (18-44); Monocytes Absolute Manual 0.44 K/mm3 (0.1-0.90); Monocytes Percent Manual 3 % (3-9); Neutrophils Absolute Manual 12.49 K/mm3 (1.3-6.7); Neutrophils Percent Manual 77 % (46-73); Schistocytes None Seen; Total Cells Counted 100
--- NOTE | 2024-12-20 18:01 | ED.WEAKNESS ---
HPI - Weakness General Chief complaint: Altered Mental Status Stated complaint: increased confusion/restlessness Time Seen by Provider: 12/20/24 17:33 History of Present Illness HPI Narrative: Patient is a 74-year-old male who presents to the ER with complaints of increased shaking, restlessness, chills, and confusion. His reports his symptoms started this morning when he woke up. Patient sources a history of Parkinson's since 2002, and a stroke in 2024. He denies any chest pain, shortness of breath, lower extremity swelling, or abdominal pain. Patient's reports he has been urinating more frequently and has had a cough due to seasonal allergies. Related Data Home Medications ?Medication ?Instructions ?Recorded ?Confirmed ?Last Taken ?Type carbidopa ER 50 mg-levodopa 200 mg 1 tablet PO DAILY@2200 07/09/24 07/13/24 07/09/24 History tablet,extended release entacapone 200 mg tablet 200 mg PO QID 07/09/24 07/13/24 07/13/24 13:20 History Allergies Allergy/AdvReac Type Severity Reaction Status Date / Time Penicillins Allergy Severe Swelling Verified 07/13/24 16:21 of Lip/Tongue/Throat Review of Systems Review of Systems: All systems reviewed & are unremarkable except as noted in HPI and below PMFSH Past Medical History Medical History Parkinsons disease Family History Family History Father Lung cancer Social History Social History Smoking status: Never smoker Alcohol intake: never Substance use: never Substance use type: does not use Do You Feel Safe in your Home?: Yes Lack of Transportation: No Lack of Food: Never True Current Housing: I Have Housing Concerned About Future Housing: No Difficulty Paying Gas/Electric Bills: No Difficulty Paying for Meds: No Currently Unemployed: No Education: Bachelor's Degree Difficulty w/ Childcare or Family Care: No Gender identity (if verbalized by the patient): Male Sexual Orientation (if Verbalized by the Patient): Straight or Heterosexual Spiritual care concerns: No Agree to blood products: Yes Exam Narrative: GENERAL: Well appearing, well-nourished, non-toxic, in no acute distress. HEAD: Normocephalic, atraumatic. NECK: Supple. No adenopathy, no masses. RESPIRATORY: Clear lungs, regular rate, no wheezing, no rhonchi CARDIOVASCULAR: Regular rate and rhythm without murmurs, rubs, or gallops. Peripheral pulses 2+ and equal bilaterally. ABDOMINAL: Soft, nontender, nondistended, no hepatosplenomegaly. Normoactive BS. MUSCULOSKELETAL: Moves all extremities. Strength/ROM intact without gross deformities. SKIN: Warm, dry, normal color. No rashes. NEURO: A&O X3. Speech clear. Cranial nerves II-XII intact. Tremors at baseline PSYCHIATRIC: Appropriate mood and affect. Normal interaction. Course Vital Signs Vital signs: Vital Signs Temperature 37.9 C H 12/20/24 16:51 Pulse Rate 104 H 12/20/24 16:51 Respiratory Rate 18 12/20/24 16:51 Blood Pressure 121/76 12/20/24 16:51 Pulse Oximetry 96 12/20/24 16:51 Oxygen Delivery Room Air 12/20/24 16:51 Temperature 37.9 C H 12/20/24 16:51 Pulse Rate 79 12/20/24 19:30 Respiratory Rate 17 12/20/24 19:30 Blood Pressure 107/67 12/20/24 19:30 Pulse Oximetry 98 12/20/24 19:30 Oxygen Delivery Room Air 12/20/24 17:31 MDM - Weakness MDM Narrative Medical decision making narrative: Patient is a 74-year-old male who presents to the ER with complaints of increased shaking, restlessness, chills, and confusion. His reports his symptoms started this morning when he woke up. Patient sources a history of Parkinson's since 2002, and a stroke in 2024. He denies any chest pain, shortness of breath, lower extremity swelling, or abdominal pain. Patient's reports he has been urinating more frequently and has had a cough due to seasonal allergies. Labs Ordered: CBC, CMP, lactic acid, CRP, PTT, INR, UA, blood cultures Imaging Ordered: Chest x-ray Medications Ordered: 2 L normal saline IV bolus, Levaquin IV Results: Pt's chest x-ray indicates Moderate biapical pleural-parenchymal scarring. Increased interstitial pattern and bronchial wall thickening bilateral mid to lower lung zones which could be due to bronchitis/pneumonia or mild pulmonary edema. No pleural effusion or pneumothorax. The cardiomediastinal silhouette is normal. Diagnosis: Pneumonia Risks: CURB-65 score: moderate risk CURB-65 Score for Pneumonia Severity from [email or web address] on 12/20/2024 All calculations should be rechecked by clinician prior to use RESULT SUMMARY: 2 points Moderate risk group: 6.8% 30-day mortality. Consider inpatient treatment or outpatient with close followup. INPUTS: Confusion ?> 0 = No BUN >19 mg/dL (>7 mmol/L urea) ?> 1 = Yes Respiratory Rate >=0 ?> 0 = No Systolic BP <90 mmHg or Diastolic BP <=0 mmHg ?> 0 = No Age >=5 ?> 1 = Yes Patient Education/Shared MDM: Results of lab work and imaging shared with patient. He endorses improvement of symptoms following medication administration. Extensive discussion between patient, patient's family and NURSING UNIT COORDINATOR regarding plan. Pt reports he would like to be discharged home and attempt outpatient treatment with oral antibiotics. Patient strongly advised to maintain hydration status upon discharge and follow-up with his PCP as soon as possible. He will be discharged home with a prescription for Levofloxacin (he has allergies to Penicillin), an inhaler, and cough medicine. Strict return precautions provided. Patient verbalized understanding and is in agreement with plan. Vital signs stable at time of discharge. All questions answered. CRITICAL CARE ADDENDUM: Indication: R/O sepsis Time type: intermittent I provided a total of 55 minutes of critical care excluding separately billable procedures. This includes time w/ EMS, initial bedside evaluation, reviewing old records, review of testing done while under my care, discussion w/ the family, nurses, data migration consultant and guiding the patient?s care while in the emergency department. Approximate time distribution: 15 minutes ? Initial evaluation, d/w involved parties, attempting to gather old records. 10 minutes ? Documenting medical record 10 minutes ? Review of results (EKGs, labs, imaging) 10 minutes ? Serial repeat bedside evaluation 10 minutes ? Discussing case with multiple providers Please see main chart for details. Excludes separately billable procedures. Differential Diagnosis Differential diagnosis: Likely acute myocardial infarction, rhabdomyolysis, sepsis, dehydration and other (Pneumonia) Lab Data Attestation: I reviewed the patient's lab results. 12/20/24 17:17 12/20/24 17:17 Labs: Lab Results 12/20/24 12/20/24 12/20/24 Range/Units 17:03 17:17 18:16 WBC 14.7 H (4.5-10.0) K/mm3 RBC 4.02 L (4.6-6.20) M/mm3 Hgb 11.0 L (14.0-18.0) g/dL Hct 32.7 L (42.0-52.0) % MCV 81.3 (80-100) fl MCH 27.4 (26-34) pg MCHC 33.6 (32-36) g/dl RDW 16.3 H (11.5-14.5) % Plt Count 208 (150-375) k/mm3 MPV 9.0 (7.4-10.4) fl Immature Gran % (Auto) Not Reportable Neut % (Auto) Not Reportable Lymph % (Auto) Not Reportable [place] % (Auto) Not Reportable Eos % (Auto) Not Reportable Baso % (Auto) Not Reportable Lymph # (Auto) Not Reportable [place] # (Auto) Not Reportable Eos # (Auto) Not Reportable Baso # (Auto) Not Reportable Abs Immat Gran (auto) Not Reportable Absolute Neuts (auto) Not Reportable Absolute Nucleated RBC Not Reportable Total Counted 100 Neutrophils % (Manual) 77 H (46-73) % Band Neutrophils % 8 H (0-6) % Lymphocytes % (Manual) 11.0 L (18-44) % Monocytes % (Manual) 3 (3-9) % Basophils % (Manual) 1 (0-1) % Nucleated RBC % Not Reportable Abs Neuts (Manual) 12.49 H (1.3-6.7) K/mm3 Abs Lymphs (Manual) 1.61 (1.1-4.5) K/mm3 Abs Monocytes (Manual) 0.44 (0.1-0.90) K/mm3 Abs Basophils (Manual) 0.14 H (0.0-0.1) K/mm3 Platelet Estimate Adequate (Adequate) Anisocytosis 2+ Schistocytes None seen PT 14.6 (11.1-14.7) Seconds INR 1.2 APTT 34.8 (22.3-36.8) Seconds Sodium 134 L (137-145) mmol/L Potassium 4.3 (3.4-5.0) mmol/L Chloride 106 (98-107) mmol/L Carbon Dioxide 21 L (22-30) mmol/L Anion Gap 7 (4-12) mmol/L BUN 31 H (9-20) mg/dL Creatinine 0.75 (0.7-1.3) mg/dL Estim Creat Clear Calc 81 ml/min Estimated GFR > 60 (59 - ) Glucose 93 (65-110) mg/dL Lactic Acid 1.0 (0.7-2.0) mmol/L Calcium 9.2 (8.4-10.2) mg/dL Total Bilirubin 0.5 (0.2-1.3) mg/dL AST 32 (17-59) U/L ALT 7 (6-50) U/L Alkaline Phosphatase 62 (38-126) U/L C-Reactive Protein 1.2 H (<1.0) mg/dL Total Protein 6.5 (6.3-8.2) g/dL Albumin 3.9 (3.5-5.1) g/dL Urine Color Dark yellow (Yellow) Urine Appearance Clear (Clear) Urine pH 7.0 (5.0-9.0) Ur Specific [place] 1.018 (1.001-1.035) Urine Protein Negative (Negative) mg/dL Urine Glucose (UA) Negative (Negative) mg/dL Urine Ketones Negative (Negative) mg/dL Ur Blood (Man) Negative (Negative) Urine Nitrate Negative (Negative) Urine Bilirubin Negative (Negative) Urine Urobilinogen 0.2 (<2.0) mg/dL Leukocyte Esterase Rfl Negative (Negative) GEO/UL Imaging Data Attestation: I personally reviewed and interpreted this imaging study as follows: Radiologist's impression: Impressions Chest X-Ray 12/20/24 18:11 IMPRESSION: 1. Interstitial opacities and bronchial wall thickening in the bilateral mid and lower lung zones which could represent bronchitis/pneumonia or mild pulmonary edema. Discharge Plan Discharge Clinical Impression: Pneumonia Patient Disposition: Home Condition: Stable Instructions: Antibiotic Form, Community Acquired Pneumonia (ED) Additional Instructions: Please return to the ER with any worsening symptoms. Follow-up with primary care provider in the next 2-3 days to ensure you are healing. Take all medications as prescribed, including regularly scheduled medications. You may take Tylenol as needed for pain control. Complete your full dose of antibiotics. Patient Language: Spanish Prescriptions: New levofloxacin 750 mg tablet 750 mg PO DAILY Qty: 5 0RF albuterol sulfate [Ventolin HFA] 90 mcg/actuation HFA aerosol inhaler 2 puff inhalation QID PRN (Reason: shortness of breath or wheezing) Qty: 8.5 0RF benzonatate 100 mg capsule 100 mg PO TID Qty: 30 0RF No Action carbidopa-levodopa 50-200 mg tablet extended release 1 tablet PO DAILY@2200 entacapone 200 mg tablet 200 mg PO QID aspirin 325 mg Tablet,Delayed Release (Dr/Ec) 325 mg PO QAM Qty: 30 0RF atorvastatin 40 mg Tablet 40 mg PO HS Qty: 30 0RF bisacodyl 10 mg Suppository 10 mg RECTAL QAM PRN (Reason: Constipation) Qty: 30 0RF carbidopa-levodopa [Sinemet] 25-100 mg Tablet 2.5 tablet PO TID@0600,1000,1800 Qty: 90 0RF sennosides [Laxative (sennosides)] 8.6 mg tablet 8.6 mg PO DAILY Qty: 30 0RF trazodone 50 mg tablet 50 mg PO HS PRN (Reason: sleep) Qty: 10 0RF Rx Instructions: 1 to 2 tablets mirtazapine 15 mg tablet 15 mg PO HS Qty: 30 0RF Follow-up/Referrals: Harms,Rocco Ying M.D. [Primary Care Provider] Time of Disposition: 20:49
[2024-12-20] MEDS: SODIUM CHLORIDE 0.9% IV 1,000 ML 999 ML IV CONT ×2 (18:37→19:28)
[2024-12-20 18:39] LABS: CRP 1.2 mg/dL (<1.0)
[2024-12-20] MEDS: SODIUM CHLORIDE 0.9% IV 400 ML 999 ML IV CONT (19:28)
[2024-12-20 19:30] VITALS: BP 107/67; PULSE 79; RESP 17; O2SAT 98
[2024-12-20] MEDS: levoFLOXacin 750 MG/D5W 150 ML 750 MG/150 ML BAG 100 MG IVPB (19:30)
[2024-12-20 20:49] VITALS: TEMP 36.6
== END 2024-12-20 21:05 | disposition home or self-care (01) ==
PROVIDERS: Emergency Medicine; Emergency Provider Registered Nurse; PCP Family Medicine
DX: J18.9 Pneumonia, unspecified organism (principal); G20.A1 Parkinson's disease without dyskinesia, without mention of fluctuations; Z86.73 Personal history of transient ischemic attack (TIA), and cerebral infarction without residual deficits; Z79.82 Long term (current) use of aspirin; Z79.899 Other long term (current) drug therapy; R94.31 Abnormal electrocardiogram [ECG] [EKG]; I45.2 Bifascicular block
CPT/HCPCS: 36415; 71045; 80053; 81001; 83605; 85025; 85610; 85730; 86140; 87040; 93005; 96361; 96365; 96366; 99284; J1956; J7030

== ENCOUNTER 2024-12-30 13:30 | Outpatient (RCR) | payer MEDICARE, SELFPAY ==
--- NOTE | 2024-11-30 12:08 | OPREHPOC ---
Outpatient Therapy Plan of Care This is a Multidisciplinary Plan of Care that may contain components documented by all disciplines (PT, OT, and ST.) PT Problem 1 PT Problem #1 Knowledge Deficit PT Goal 1 Goal / Goal Update 1. Patient to demonstrate independence with HEP for improved self-reliance of symptom management. Target Visit 4 PT Problem 2 PT Problem #2 Pain PT Goal 1 Goal / Goal Update 1. Patient to decrease subjective reports of pain to <3/10 for improved ADL tolerance. Target Visit 10 PT Problem 3 PT Problem #3 Impaired Functional Mobility PT Goal 1 Goal / Goal Update 1. Patient to improve distance ambulated during 2MWT to 325 ft to demonstrate an improvement in ADL endurance. 2. Patient will improve lower extremity strength and functional mobility by reducing Five Times Sit -to-Stand test to =25 seconds to demonstrate reduced fall risk and improved transitional movements 3. Patient to score >=34/56 on the Basurto Balance Scale to show improvements in balance and decreased level of assistance needed. Target Visit 10 PT Problem 4 PT Problem #4 Impaired Strength PT Goal 1 Goal / Goal Update 1. Patient to demonstrate gross LE strength >=4/5 for improved functional stability required for ADLs. Target Visit 10
--- NOTE | 2024-11-30 12:08 | PTOPEVAL1 ---
Assessment and note entered by Jose David Lee PT Evaluation Information Assessment Status Evaluation Diagnosis Parkinson Disease, CVA with L sided weakness ICD-10 Condition Codes (PT) Repeated falls R29.6,Difficulty Walking R26.2, Weakness R53.1 Other ICD-10 Condition Codes ( G20.A1 PT) Subjective Information Pt reports a long of history of Parkinson's disease which has been primarily controlled by medication. Pt had CVA in June and was hospitalized followed by a stay at [facility] acute rehab. Pt reports continued difficulty with daily tasks due to fatigue and L sided weakness. Pt primarily uses a walker and cane for mobility. He prefers the walker in the morning until he gets going. He reports he has had a few falls recently but he is typically able to get himself up. Pt receives some assistance with ADLs such as dressing but is able to perform those tasks on his own if he has too but is much easier with his 's assistance. Pt states sometime has trouble raising from a chair on his own. Reported Pain Level Pain Score 4: Self Report Assessment PT Clinical Summary The patient presents with a complex neurological history, including long-standing Parkinson's Disease and a recent CVA in june. This dual diagnosis has resulted in significant functional decline and safety concerns, primarily manifesting as frequent falls. The patient reports decreased functional mobility and exhibits marked difficulty executing essential tasks such as standing and transfers. Objective assessment confirms severe impairment in dynamic balance and a high fall risk , evidenced by a Basurto Balance Score of 21/56. Furthermore, lower extremity strength and power are significantly compromised, with the 5x Sit-to- Stand test requiring 36 seconds to complete. The patient is deemed appropriate for intensive physical therapy focused on improving motor planning, strength, and dynamic balance to enhance independence and reduce fall risk. Plan of Care Interventions Gait Training,Manual Therapy,Neuro Re-education, Patient/Caregiver Education,Therapeutic Activities ,Therapeutic Exercise,Other PT Services Indicated Yes Treatment Frequency and 2x week 10 visits Duration These treatments will address the objective and functional deficits as defined above. The patient will be advanced safely and appropriately in order for the patient to progress towards his/her prior level of function. Additional exercises will be introduced and as well as a comprehensive home exercise program upon discharge, if needed, ?to ensure carryover of functional gains achieved in the clinic. This treatment plan has been reviewed and agreement upon by the patient.
--- NOTE | 2024-12-22 14:48 | PCPTNOTE ---
Patient called to cancel due to illness.
--- NOTE | 2024-12-30 14:11 | PTOPDC ---
Assessment and note entered by Jose David Lee, PT Evaluation Information Assessment Status Discharge Diagnosis Parkinson Disease, CVA with L sided weakness ICD-10 Condition Codes (PT) Repeated falls R29.6,Difficulty Walking R26.2, Weakness R53.1 Other ICD-10 Condition Codes ( G20.A1 PT) Subjective Information Pt states he has noticed good improvements in his lower body strength but still has some difficulties with balance and sitting up from a low chair. Pt reports he has had a occasional fall . Pt states about a week ago he had a sharp pain on the point of his R shoulder and now he does not have the strength to to raise his arm for hygiene and feeding. Pt states his R shoulder is now aching and is his primary concern. Reported Pain Level Pain Score 4: Self Report Assessment PT Clinical Summary patient has demonstrated notable progress in therapeutic exercise, showing significant improvement in lower extremity (LE) strength and overall functional mobility since the start of physical therapy. Despite these gains, the patient reports ongoing occasional falls, suggesting residual balance deficits remain a concern. However, the primary issue is the recent onset of severe right shoulder pain, which now limits active range of motion and functional reach. Clinical evaluation strongly indicates a probable right rotator cuff tear, likely involving the infraspinatus tendon. Due to this change in status and potential structural injury, current physical therapy is being discontinued. The patient has been encouraged to seek an Orthopedic MD for further specialized evaluation and diagnostic imaging to determine the appropriate next course of action. Plan of Care PT Services Indicated No
== END 2024-12-31 08:57 | disposition home or self-care (01) ==
LOC: ANHGOSHPT 13:30
PROVIDERS: PCP Family Medicine
DX: G20.A1 Parkinson's disease without dyskinesia, without mention of fluctuations (principal)
CPT/HCPCS: 97110; 97112; 97162; 97530; 97750